=== PATIENT | female | born 2000 | race Caucasian/White ===

== ENCOUNTER 2018-03-23 17:45 | Emergency (ER) | payer BC ==
[~2018-03-23] VITALS: Ht 172.7 cm; Wt 100.0 kg
[2018-03-23 19:05] LABS: HEMATOCRIT 40.8 % (35.0-45.0); HEMOGLOBIN 13.3 g/dL (12.0-15.0); MEAN CELL VOLUME 79 fl (78-95); MEAN CORPUSCULAR HEMOGLOBIN 26 pg (26-32); MEAN CORPUSCULAR HGB CONC 33 g/dL (33-37); MEAN PLATELET VOLUME 11.4 fl (7.4-10.4); PLATELET COUNT 175 K/mm3 (130-400); RED BLOOD COUNT 5.19 M/mm3 (4.10-5.30); RED CELL DISTRIBUTION WIDTH 16.1 % (11.5-14.5); WHITE BLOOD COUNT 7.1 K/mm3 (4.8-10.8)
[2018-03-23 19:09] LABS: ALBUMIN 4.2 g/dL (3.5-5.0); BUN/CREATININE RATIO 25.1 (6.0-26.0); CALCIUM 8.6 mg/dL (8.4-10.2); POTASSIUM 4.1 mmol/L (3.6-5.0)
[2018-03-23 19:10] LABS: D-DIMER 0.98 mg/L FEU (0.15-0.50)
[2018-03-23 19:26] LABS: NEUTROPHILS 80 % (42-75)
[2018-03-23 19:27] LABS: LYMPHOCYTE 9 % (20-51); MONOCYTE 10 % (1-10)
[2018-03-23 19:43] LABS: URINE APPEARANCE CLEAR; URINE BILIRUBIN NEGATIVE (NEGATIVE); URINE BLOOD TRACE (NEGATIVE); URINE COLOR YELLOW; URINE GLUCOSE NEGATIVE (NEGATIVE); URINE KETONE NEGATIVE (NEGATIVE); URINE LEUKOCYTE ESTERASE 1+ (NEGATIVE); URINE NITRATE NEGATIVE (NEGATIVE); URINE PROTEIN(semi-quant) NEGATIVE (NEGATIVE); URINE UROBILINOGEN NORMAL (NORMAL)
[2018-03-23] MEDS ORDERED: KEFLEX250 M1 PO (20:57)
[2018-03-23 21:01] VITALS: BP 116/67
== END 2018-03-23 21:04 | disposition home or self-care (01) ==
LOC: ED 17:45
PROVIDERS: Nurse Practitioner
DX: R55 Syncope and collapse (principal); N30.90 Cystitis, unspecified without hematuria; Z88.1 Allergy status to other antibiotic agents
CPT/HCPCS: J1885; J7030; Q9967